=== PATIENT | male | born 1975 | race African-American/Black ===

== ENCOUNTER 2020-05-11 04:55 | Emergency (ER) | payer BC ==
[~2020-05-11] VITALS: Ht 177.8 cm; Wt 136.4 kg
[2020-05-11 05:10] VITALS: BP 224/112
== END 2020-05-11 05:50 | disposition home or self-care (01) ==
LOC: ER 04:56
DX: M25.512 Pain in left shoulder (principal); R53.1 Weakness; I10 Essential (primary) hypertension; F17.200 Nicotine dependence, unspecified, uncomplicated; F12.90 Cannabis use, unspecified, uncomplicated
CPT/HCPCS: 99281